=== PATIENT | male | born 1975 | race Two or more races ===

== ENCOUNTER 2018-05-13 19:04 | Emergency (ER) | payer MEDICAID ==
[~2018-05-13] VITALS: Ht 172.7 cm; Wt 81.6 kg
[~2018-05-13 19:04] MED LIST: CLARITIN10 M1 PO; SIMVASTATIN10 MG PO
[2018-05-13 19:28] VITALS: BP 116/77
--- NOTE | 2018-05-13 19:47 | Emergency Room Report ---
History of Present Illness General Chief Complaint: Sore Throat Source: Patient Present Illness HPI 42-year-old male with no significant past medical history complaining of one- week of sore throat, sinus pressure, cough with yellow phlegm, and rhinorrhea. Patient mentions last week he had fever and chills but no more fevers. Summary , chest pain, vision, no other associated symptoms. Patient has been taking pdud-ajg-jawzgnk cold medication with no relief. Allergies: Coded Allergies: No Known Allergies (Unverified , 11/13/12) Patient History Past Medical History: see triage record Past Surgical History: none Immunizations: UTD Reviewed Nursing Documentation: PMH: Agreed; PSxH: Agreed Review of Systems All Other Systems: negative except mentioned in HPI Physical Exam Vital Signs Date Time Temp Pulse Resp B/P (MAP) Pulse Ox O2 Delivery O2 Flow Rate FiO2 05/13/18 19:22 98.3 81 16 116/77 95 Room Air 98.2 Sp02 EP Interpretation: reviewed, normal General Appearance: normal inspection, well appearing, no apparent distress, alert, GCS 15 Head: normocephalic Eyes: bilateral eye normal inspection, bilateral eye PERRL ENT: hearing grossly normal, no angioedema, TMs + canals normal, uvula midline , pharyngeal erythema, other - maxillary sinus tender to palpation bilaterally Neck: normal inspection, full range of motion, supple Respiratory: normal inspection, lungs clear, no rhonchi, no respiratory distress, no retraction, no wheezing Cardiovascular #1: normal inspection, normal peripheral pulses, no gallop, no murmur Gastrointestinal: normal inspection, soft Rectal: deferred Genitourinary: deferred Musculoskeletal: normal inspection, back normal Neurologic: normal inspection, alert, oriented x3 Psychiatric: normal inspection, judgement/insight normal Skin: normal inspection, normal color, no rash, warm/dry Lymphatic: normal inspection, no adenopathy Medical Decision Making PA Attestation All diagnoses and treatment plans are reviewed and discussed with supervising physician Dr. Pereyra Diagnostic Impression: Primary Impression: Sinusitis ER Course 42-year-old male with no significant past medical history complaining of one- week of sore throat, sinus pressure, cough with yellow phlegm, and rhinorrhea. Patient mentions last week he had fever and chills but no more fevers. Summary , chest pain, vision, no other associated symptoms. Patient has been taking lorr-hmy-lwgluhb cold medication with no relief. Ddx considered but are not limited to sinusitis, viral URI, strep pharyngitis Vital signs: are WNL, pt. is afebrile H&PE are most consistent with sinusitis ORDERS:Augmentin, Mucinex, Tessalon Perles ED INTERVENTIONS: None required at this time. DISCHARGE: At this time pt. is stable for d/c to home. Will provide printed patient care instructions, and any necessary prescriptions. Care plan and follow up instructions have been discussed with the patient prior to discharge. take medication as directed follow with the primary care provider if symptoms continue Last Vital Signs Date Time Temp Pulse Resp B/P (MAP) Pulse Ox O2 Delivery O2 Flow Rate FiO2 05/13/18 19:28 98.2 81 16 116/77 95 Room Air 98.2 Disposition: HOME, SELF-CARE Condition: Stable Scripts Benzonatate (Tessalon Perle) 100 Mg Capsule 100 MG ORAL THREE TIMES A DAY, #30 PERLE Prov: Olivia Jacinto 05/13/18 Guaifenesin (Mucinex) 600 Mg Tab.er.12h 600 MG PO BID, #20 TAB Prov: Olivia Jacinto 05/13/18 Amoxicillin/Potassium Clav 875-125* (AUGMENTIN 875-125 TABLET*) 1 Each Tablet 1 TAB ORAL TWICE A DAY for 10 Days, #20 TAB Prov: Olivia Jacinto 05/13/18 Patient Instructions: Sinusitis, Adult, Sxfg-aj-Elan Additional Instructions: take medications as directed, if fever chill continuous follow with the primary care provider Olivia Jacinto May 13, 2018 19:47
[2018-05-13] MEDS ORDERED: AUGMENTIN 875-1 EAC1 ORAL (19:48)
[2018-05-13] MEDS ORDERED: TESSALON PERLE100 M2 ORAL (19:48)
[2018-05-13] MEDS ORDERED: MUCINEX600 MG PO (19:48)
[2018-05-13 20:42] VITALS: BP 116/77
== END 2018-05-13 20:45 | disposition home or self-care (01) ==
LOC: EMR 20:10
DX: J32.9 Chronic sinusitis, unspecified (principal)
CPT/HCPCS: 99283